=== PATIENT | female | born 1995 ===

== ENCOUNTER 2019-07-24 12:02 | Inpatient (IN) | payer MEDICAID ==
[~2019-07-24] VITALS: Ht 160 cm; Wt 99.1 kg
--- NOTE | 2019-07-24 21:00 | NUR ---
HERE WITH SPOUSE AND MOTHER IN LAW FOR LABOR INDUCTION. ORIENTED TO ROOM AND PLAN OF CARE
[2019-07-24] MEDS ORDERED: PRENATAL TABLET PO (21:23)
[2019-07-24] MEDS ORDERED: ZANTAC 7575 MG (21:25)
[2019-07-24 21:28] VITALS: BP 137/75; PULSE 105; TEMP 997.8
[2019-07-24 21:35] VITALS: BP 137/75; PULSE 105; TEMP 97.6
[2019-07-24 22:40] VITALS: BP 164/99; PULSE 108
[2019-07-24 22:45] LABS: BASO % 0.2 % (0.0-2.0); EOS # 0.2 (0.0-0.7); GRAN # 6.9 (1.4-6.5); GRAN % 76.3 % (42.2-75.2); HEMOGLOBIN 12.6 g/dl (12.5-16.0); LYMPH # 1.2 (1.2-3.4); LYMPH % 13.7 % (20.0-51.0); MEAN CELL VOLUME 87 fl (80.0-100.0); MEAN CORPUSCULAR HEMOGLOBIN 29 pg (27.0-31.0); MEAN CORPUSCULAR HGB CONC 33 g/dl (33.0-37.0); MEAN PLATELET VOLUME 10.6 fl (7.4-10.4); MONO # 0.7 (0.1-0.6); MONO % 7.4 % (1.7-9.3); PLATELET COUNT 210 K/mm3 (130-400); RED BLOOD COUNT 4.39 M/mm3 (4.10-5.30); REDCELL DISTRIBUTION WIDTH-CV 14.5 % (11.5-14.5)
--- NOTE | 2019-07-24 22:59 | NUR ---
IVF HUNG TO IMPROVE REACTIVITY 2230 CYTOTEC 25 MG PO GIVEN. SPOUSE AND MOTHER IN LAW STAYING THE NIGHT IN PT ROOM
[2019-07-24 23:10] VITALS: BP 157/94; PULSE 98
[2019-07-24 23:40] VITALS: BP 133/81; PULSE 99
[2019-07-25] VITALS (33 sets, daily range): BP systolic 98–168; BP diastolic 46–100; PULSE 79–100; TEMP 97.5–98.9
--- NOTE | 2019-07-25 02:30 | NUR ---
PT DENIES ABD PAIN OR CRAMPING
[2019-07-25] MEDS ORDERED: PROAIR HFA0.09 MG/AC IH (03:32)
--- NOTE | 2019-07-25 04:32 | NUR ---
SONOROUS RESPIRATIONS 18-20 WHEN SLEEPING. O2 SAT SPOT CHECK 90-91%. QUESTIONED IF PT HAS A CPAP OR BEEN EVALUATED FOR- DENIES. STATES SHE ALWAYS SOUNDS CONGESTED SHE IS BREATHING. 02/ MASK AT 10 L STARTED. SATS THEN TO 100%
--- NOTE | 2019-07-25 08:40 | NUR ---
Dr. Joshi at bedside. AROM of clear fluid performed. Bedside US conducted. Confirms breech presentation. Pt prepped for delivery and taken back to OR.
--- NOTE | 2019-07-25 17:52 | NUR ---
Pt to xray for chest xray via wheelchair at approx 1530. Returned at 1750, assisted back into bed by this RN. Pulse ox noted to be 83%. 2 L O2 via NC applied. Pulse ox 91%,
--- NOTE | 2019-07-25 22:30 | NUR ---
INSP WHEEZE AND CRACKLES. ABULATES HALLS WITH BABY IN CRIB. SPOUSE STAYS OVERNITE. EASILY AMBULATES. NICOTINE PATCH APPLIED TO L UPPER ARM PER PT REQUEST
[2019-07-26] VITALS (7 sets, daily range): BP systolic 128–150; BP diastolic 85–101; PULSE 100–108; TEMP 97.3–98.3
--- NOTE | 2019-07-26 00:01 | NUR ---
O2 SAT 91% RA. o2 /nc @ 2L started per oreder. 0003 O2 SAT 98%
--- NOTE | 2019-07-26 07:15 | NUR ---
Patient sleeping upon RN entry to room. SpO2 90-91% while in bed. Patient up to bathroom, states she plans to stay awake for breakfast now. SpO2 94%. Will continue to monitor.
[2019-07-27] VITALS (7 sets, daily range): BP systolic 138–160; BP diastolic 86–101; PULSE 89–120; TEMP 97.6–98.2
[2019-07-27 16:57] LABS: BASO % 0.2 % (0.0-2.0); EOS # 0.2 (0.0-0.7); EOS % 1.6 % (0-4.0); GRAN % 82.4 % (42.2-75.2); HEMATOCRIT 41.1 % (37.0-47.0); HEMOGLOBIN 13.5 g/dl (12.5-16.0); LYMPH # 1.3 (1.2-3.4); LYMPH % 11.5 % (20.0-51.0); MEAN CELL VOLUME 88 fl (80.0-100.0); MEAN CORPUSCULAR HEMOGLOBIN 29 pg (27.0-31.0); MEAN CORPUSCULAR HGB CONC 33 g/dl (33.0-37.0); MEAN PLATELET VOLUME 10.2 fl (7.4-10.4); MONO # 0.4 (0.1-0.6); MONO % 3.8 % (1.7-9.3); PLATELET COUNT 239 K/mm3 (130-400); RED BLOOD COUNT 4.66 M/mm3 (4.10-5.30); REDCELL DISTRIBUTION WIDTH-CV 14.8 % (11.5-14.5)
[2019-07-27 17:15] LABS: ALBUMIN 3.3 gm/dL (3.5-5.0); BILIRUBIN,TOTAL 0.2 mg/dL (0.0-1.0); CALCIUM 9.3 mg/dL (8.4-10.2); CREATININE, serum 0.8 (0.52-1.25); TOTAL PROTEIN 6.6 gm/dL (6.4-8.2)
[2019-07-27 22:50] LABS: COLLECTION METHOD CLEAN CATCH
[2019-07-27 22:56] LABS: MUCOUS Present /lpf; PH 6 (5-8); SQUAMOUS EPITHELIAL 0-2 /hpf; URINE APPEARANCE Clear; URINE BACTERIA Rare /hpf; URINE BILIRUBIN Negative (NEGATIVE); URINE BLOOD 1+ (NEGATIVE); URINE COLOR Yellow; URINE GLUCOSE Negative (NEGATIVE); URINE KETONE Negative (NEGATIVE); URINE LEUKOCYTE ESTERASE Negative (NEGATIVE); URINE NITRATE Negative (NEGATIVE); URINE PROTEIN(semi-quant) 2+ (NEGATIVE); URINE RBC 0-2 /hpf; URINE UROBILINOGEN Negative (NEGATIVE)
[2019-07-28 04:45] VITALS: BP 144/86; PULSE 113; TEMP 98
[2019-07-28 08:26] VITALS: BP 150/90; PULSE 114; TEMP 98.6
[2019-07-28 11:00] VITALS: BP 139/89; PULSE 100
[2019-07-28] MEDS ORDERED: PROCARDIA XL 6060 MG PO (12:36)
[2019-07-28] MEDS ORDERED: IBU600 MG PO (12:36)
[2019-07-28] MEDS ORDERED: PERCOCET 325 MG1 TA2 PO (12:37)
--- NOTE | 2019-07-28 13:40 | NUR ---
Yenifer Rockwell with social worker school here and at bedside. See note
--- NOTE | 2019-07-28 14:16 | NUR ---
videos watched, questions answered. Mother going to be discharged to boarder status.
--- NOTE | 2019-07-28 15:00 | NUR ---
Pt discharged to boarder status at this time. Pt has appt tomorrow afternoon to see primary care for cough and congestion. Pt's scripts given. Pt leaves floor, will go home and get prescriptions and states she will be back around 1700. taken to nursery
--- NOTE | 2019-07-28 15:05 | NUR ---
propeller layout worker met with patient and father of the baby to assess for needs. Patient states she lives with father of the baby in [place] and that they have family in the area that are supportive. Patient states she will be off work until October. Patient states she has a car seat, bottles, crib, and needed supplies for her baby. Patient states she has been ill, as well as the father of the baby and that she does not have a primary care provider. Patient is agreeable to seeing a physician at [facility] and worker arranged an appointment with Dr Duran for 07/29 at 3:30pm. Patient stated she is enrolled in [facility]. Worker provided written resource information to patient. Worker collaborated with patient's nurse regarding the above information.
== END 2019-07-28 15:00 | disposition home or self-care (01) | DRG 788 ==
LOC: OB 12:02 → LDR 20:56 → OB 07-25 10:30
PROVIDERS: Obstetrics & Gynecology; ADMIT Obstetrics & Gynecology
PROC: 10D00Z1 Extraction of Products of Conception, Low, Open Approach (ICD-10-PCS; principal; 2019-07-24)
PROC: 3E033VJ Introduction of Other Hormone into Peripheral Vein, Percutaneous Approach (ICD-10-PCS; 2019-07-24)
DX: O13.4 Gestational [pregnancy-induced] hypertension without significant proteinuria, complicating childbirth (principal); O32.1XX0 Maternal care for breech presentation, not applicable or unspecified; Z3A.39 39 weeks gestation of pregnancy; Z37.0 Single live birth; O99.214 Obesity complicating childbirth; O99.52 Diseases of the respiratory system complicating childbirth; O99.334 Smoking (tobacco) complicating childbirth; L30.9 Dermatitis, unspecified; N83.8 Other noninflammatory disorders of ovary, fallopian tube and broad ligament; O99.72 Diseases of the skin and subcutaneous tissue complicating childbirth; F17.210 Nicotine dependence, cigarettes, uncomplicated; J45.909 Unspecified asthma, uncomplicated
CPT/HCPCS: A9284; J0690; J1885; J2270; J2370; J2405; J2590; J7120

== ENCOUNTER 2021-12-14 08:24 | Emergency (ER) | payer MEDICAID ==
[~2021-12-14] VITALS: Ht 160 cm; Wt 84.1 kg
[~2021-12-14 08:24] MED LIST: IBU600 MG PO; PERCOCET 325 MG1 TA2 PO; PRENATAL TABLET PO; PROAIR HFA0.09 MG/AC IH; PROCARDIA XL 6060 MG PO; ZANTAC 7575 MG
[2021-12-14 09:29] LABS: BASO % 0.4 % (0.0-2.0); EOS # 0.3 K/mm3 (0.0-0.7); EOS % 4.7 % (0.0-4.0); GRAN # 3.2 K/mm3 (1.4-6.5); GRAN % 57.7 % (42.2-75.2); HEMATOCRIT 37.8 % (37.0-47.0); HEMOGLOBIN 13.2 g/dl (12.5-16.0); LYMPH # 1.7 K/mm3 (1.2-3.4); LYMPH % 30.8 % (20.0-51.0); MEAN CELL VOLUME 86 fl (80.0-100.0); MEAN CORPUSCULAR HEMOGLOBIN 30 pg (27-31); MEAN CORPUSCULAR HGB CONC 35 g/dl (33.0-37.0); MEAN PLATELET VOLUME 9.4 fl (7.4-10.4); MONO # 0.3 K/mm3 (0.1-0.6); PLATELET COUNT 220 K/mm3 (130-400); REDCELL DISTRIBUTION WIDTH-CV 12.5 % (11.5-14.5)
[2021-12-14 09:42] LABS: ALBUMIN 3.7 gm/dL (3.5-5.0); BILIRUBIN,TOTAL 0.4 mg/dL (0.2-1.2); CALCIUM 8.3 mg/dL (8.4-10.2); CREATININE, serum 0.72 mg/dL (0.57-1.11); POTASSIUM 3.8 mmol/L (3.5-4.5); TOTAL PROTEIN 7.2 gm/dL (6.2-8.1)
[2021-12-14 10:42] LABS: COLLECTION METHOD CLEAN CATCH
[2021-12-14 10:48] LABS: PH 7 (5-8); SQUAMOUS EPITHELIAL 0-2 /hpf (0-10); URINE APPEARANCE Clear (CLEAR/HAZY); URINE BACTERIA Rare /hpf (NONE SEEN); URINE BILIRUBIN Negative (NEGATIVE); URINE BLOOD 2+ (NEGATIVE); URINE COLOR Straw (YELLOW); URINE GLUCOSE Negative (NEGATIVE); URINE KETONE Negative (NEGATIVE); URINE LEUKOCYTE ESTERASE Negative (NEGATIVE); URINE NITRATE Negative (NEGATIVE); URINE PROTEIN(semi-quant) Negative (NEGATIVE); URINE RBC 0-2 /hpf (0-2); URINE UROBILINOGEN Negative (NEGATIVE)
[2021-12-14 11:10] VITALS: BP 122/59; PULSE 101; TEMP 98.3
== END 2021-12-14 11:10 | disposition home or self-care (01) ==
LOC: COL.ER 08:24
PROVIDERS: Emergency Medicine
DX: R05.9 Cough, unspecified (principal)
CPT/HCPCS: J2270; J2405; J7030

== ENCOUNTER 2024-07-02 13:15 | Emergency (ER) | payer MEDICAID ==
[~2024-07-02] VITALS: Ht 154.9 cm; Wt 93.2 kg
[2024-07-02 13:21] VITALS: TEMP 98.1
[2024-07-02 13:58] LABS: BASO % 0.2 % (0.0-2.0); EOS # 0.2 K/mm3 (0.0-0.7); EOS % 1.5 % (0.0-4.0); GRAN # 8.5 K/mm3 (1.4-6.5); GRAN % 83.8 % (42.2-75.2); HEMATOCRIT 37.4 % (37.0-47.0); HEMOGLOBIN 12.6 g/dl (12.5-16.0); LYMPH # 0.9 K/mm3 (1.2-3.4); LYMPH % 9.1 % (20.0-51.0); MEAN CELL VOLUME 88 fl (80.0-100.0); MEAN CORPUSCULAR HEMOGLOBIN 30 pg (27-31); MEAN CORPUSCULAR HGB CONC 34 g/dl (33.0-37.0); MEAN PLATELET VOLUME 9.9 fl (7.4-10.4); MONO # 0.5 K/mm3 (0.1-0.6); MONO % 4.8 % (1.7-9.3); PLATELET COUNT 224 K/mm3 (130-400); RED BLOOD COUNT 4.24 M/mm3 (4.10-5.30); REDCELL DISTRIBUTION WIDTH-CV 13.1 % (11.5-14.5)
[2024-07-02] MEDS ORDERED: Albuterol/Ipratropium 3 MG-0.5 MG/3 ML Neb Soln IH SCH (14:00)
[2024-07-02] MEDS ORDERED: methylPREDNISolone Sod Succ 125 MG/2 ML VIAL IV ONE (14:00)
[2024-07-02] MEDS ORDERED: NS 1,000 ML IV ONE (14:00)
[2024-07-02 14:17] LABS: ALBUMIN 3.1 g/dL (3.5-5.0); BILIRUBIN,TOTAL 0.2 mg/dL (0.2-1.2); CALCIUM 9.8 mg/dL (8.4-10.2); CREATININE, serum 0.63 mg/dL (0.57-1.11); POTASSIUM 3.8 mEq/L (3.5-4.5)
[2024-07-02 14:40] VITALS: BP 130/78
--- NOTE | 2024-07-02 14:40 | NUR ---
PT HERE FOR SORE THROAT. 23.2 WEEKS . T CATAGORY 1. PT IS COMPLAINING OF SOME CRAMPING, WHILE POINTING ALONG HER ROUND LIGAMENTS. DENIES LOF AND VB.
[2024-07-02] MEDS ORDERED: Acetaminophen 500 MG TAB PO ONE (15:00)
[2024-07-02] MEDS ORDERED: ALBUTEROL0.83 MG/ML IH (15:26)
[2024-07-02] MEDS ORDERED: PREDNISONE20 MG PO (15:27)
[2024-07-02] MEDS ORDERED: Albuterol 0.083% Neb Soln 2.5 MG/3 ML UD IH ONE (15:30)
[2024-07-02 16:32] VITALS: PULSE 93
== END 2024-07-02 16:32 | disposition home or self-care (01) ==
LOC: COL.ER 13:15
PROVIDERS: Personal Emergency Response Attendant
DX: O99.512 Diseases of the respiratory system complicating pregnancy, second trimester (principal); J02.9 Acute pharyngitis, unspecified; J45.909 Unspecified asthma, uncomplicated; O99.891 Other specified diseases and conditions complicating pregnancy; R10.30 Lower abdominal pain, unspecified; Z3A.23 23 weeks gestation of pregnancy
CPT/HCPCS: J2919; J7030